=== PATIENT | male | born 1995 | race Two or more races ===

== ENCOUNTER → 2021-04-29 11:54 | Emergency (ER) | payer MEDICAID, OTHER ==
[~2021-04-29] VITALS: Ht 182.9 cm; Wt 81.6 kg
[~2021-04-29 11:54] MED LIST: PROCHLORPERAZINE EDISYLATE 5 MG/ML 2ML VIAL IV ONE; SODIUM CHLORIDE 0.9% 1,000 ML IV ONE
[2021-04-29 12:23] VITALS: BP 148/75
== END | disposition left against medical advice (07) ==
LOC: ER 11:54
DX: F41.9 Anxiety disorder, unspecified (principal)
CPT/HCPCS: 96361; 96374; 99283; J0780; J7030

== ENCOUNTER 2021-09-17 17:39 | Emergency (ER) | payer MEDICAID | END 2021-09-17 18:42 | disposition left against medical advice (07) | LOC: ER 17:39 | DX: M79.671 Pain in right foot (principal); Z53.21 Procedure and treatment not carried out due to patient leaving prior to being seen by health care provider ==

== ENCOUNTER 2021-12-10 19:00 | Inpatient (IN) | payer MEDICAID ==
[~2021-12-10] VITALS: Ht 182.9 cm; Wt 86.3 kg
[2021-12-10 20:01] LABS: Basophils # (auto) 0 10 ^3/uL (0-0.2); Basophils % (auto) 0.3 % (0.0-2.0); Eosinophils # (auto) 0 10 ^3/uL (0-0.8); Eosinophils % (auto) 0.4 % (0.0-7.0); Hematocrit 48.4 % (41.0-53.0); Hemoglobin 16.4 g/dL (13.5-17.5); Lymphocytes # (auto) 1.7 10 ^3/uL (0.4-5.4); Lymphocytes % (auto) 22.4 % (10.0-50.0); Mean Corpuscular Hemoglobin 30.3 pg (28.0-32.0); Mean Corpuscular Hgb Conc. 33.8 g/dL (32.0-36.0); Mean Corpuscular Volume 89.8 fL (80.0-100.0); Monocytes # (auto) 0.5 10 ^3/uL (0-1.3); Neutrophils # (auto) 5.4 10 ^3/uL (1.6-8.6); Neutrophils % (auto) 69.9 % (37.0-80.0); Nucleated Red Blood Cells % 0.1 %; Red Blood Cells 5.39 10^6/uL (4.5-5.90); Red Cell Distribution Width 12.9 % (11.8-14.3); White Blood Cell 7.8 10^3/uL (4.4-10.8)
[2021-12-10 20:15] LABS: Albumin 4.1 g/dL (3.4-5.0); Calcium 9.1 mg/dL (8.5-10.1); Potassium 3.6 mmol/L (3.5-5.1); Salicylate < 1.7 mg/dL (2.8-20.0)
[2021-12-10 20:16] LABS: Amphetamine Screen, Urine NEGATIVE (NEGATIVE); Barbiturate Scree,Urine NEGATIVE (NEGATIVE); Benzodiazephine Screen, Urine NEGATIVE (NEGATIVE); Cannabinoid Screen, Urine NEGATIVE (NEGATIVE); Cocaine Screen, Urine NEGATIVE (NEGATIVE); Opiate Scree,Urine NEGATIVE (NEGATIVE); Phencyclidine Screen, Urine NEGATIVE (NEGATIVE)
[2021-12-10 20:18] LABS: Acetaminophen < 2.0 ug/mL (10-30)
[2021-12-10 20:23] LABS: BUN/Creatinine Ratio 8.2; Bilirubin, Total 0.4 mg/dL (0.2-1.0)
[2021-12-10] MEDS ORDERED: NALOXONE HCL 1MG/ML 2ML SYRINGE IV ONE (21:15)
[2021-12-10] MEDS ORDERED: SODIUM CHLORIDE 0.9% 1,000 ML IV SCH (22:00)
[2021-12-10] MEDS ORDERED: FOLIC ACID 1 MG, MULTIPLE VITAMIN 10 ML, MAGNESIUM SULF SDV 50% 8 MEQ, THIAMINE INJ 100... INJ SCH ×5 (22:00)
[2021-12-10] MEDS ORDERED: ONDANSETRON HCL 4 MG/2 ML VIAL IV PRN (22:00)
[2021-12-10] MEDS ORDERED: LORazepam 2MG/ML-1ML VIAL IV PRN (22:30)
[2021-12-10] MEDS ORDERED: MULTIPLE VITAMIN TAB PO ONE (23:15)
[2021-12-10] MEDS ORDERED: FOLIC ACID 1 MG TAB PO ONE (23:15)
[2021-12-10] MEDS ORDERED: THIAMINE HCL 100 MG TAB PO ONE (23:15)
[2021-12-11 02:00] VITALS: BP 113/60
[2021-12-11] MEDS ORDERED: MULTIPLE VITAMIN TAB PO SCH (10:00)
[2021-12-11] MEDS ORDERED: FOLIC ACID 1 MG TAB PO SCH (10:00)
[2021-12-11] MEDS ORDERED: THIAMINE HCL 100 MG TAB PO SCH (10:00)
== END 2021-12-11 03:13 | disposition left against medical advice (07) | DRG 280 ==
LOC: EDBD 19:00 → ER 19:06 → OVERFLOW 22:16 → TELE 22:37
PROVIDERS: ADMIT Nurse Practitioner Family; ATTEND Nurse Practitioner Family
DX: K70.9 Alcoholic liver disease, unspecified (principal); F10.129 Alcohol abuse with intoxication, unspecified; F32.A Depression, unspecified; F41.9 Anxiety disorder, unspecified; Y90.6 Blood alcohol level of 120-199 mg/100 ml; Z53.29 Procedure and treatment not carried out because of patient's decision for other reasons; R74.8 Abnormal levels of other serum enzymes; F19.10 Other psychoactive substance abuse, uncomplicated; Z83.3 Family history of diabetes mellitus; Z20.822 Contact with and (suspected) exposure to COVID-19
CPT/HCPCS: 36415; 70450; 80053; 80307; 80320; 80329; 85025; 96361; 96374; 96375; 99291; G0378; J2405

== ENCOUNTER 2022-08-26 09:33 | Inpatient (IN) | payer MEDICAID ==
[~2022-08-26] VITALS: Ht 182.9 cm; Wt 87.8 kg
[2022-08-26 10:21] LABS: Basophils # (auto) 0 10 ^3/uL (0-0.2); Basophils % (auto) 0.6 % (0.0-2.0); Eosinophils # (auto) 0.1 10 ^3/uL (0-0.8); Eosinophils % (auto) 1.3 % (0.0-7.0); Hematocrit 50.8 % (41.0-53.0); Hemoglobin 17.6 g/dL (13.5-17.5); Lymphocytes # (auto) 2.1 10 ^3/uL (0.4-5.4); Lymphocytes % (auto) 26.8 % (10.0-50.0); Mean Corpuscular Hgb Conc. 34.6 g/dL (32.0-36.0); Mean Corpuscular Volume 89.8 fL (80.0-100.0); Monocytes # (auto) 0.6 10 ^3/uL (0-1.3); Monocytes % (auto) 8.4 % (0.0-12.0); Neutrophils # (auto) 4.8 10 ^3/uL (1.6-8.6); Neutrophils % (auto) 62.9 % (37.0-80.0); Nucleated Red Blood Cells % 0.2 %; Red Blood Cells 5.66 10^6/uL (4.5-5.90); Red Cell Distribution Width 12.8 % (11.8-14.3); White Blood Cell 7.6 10^3/uL (4.4-10.8)
[2022-08-26 10:35] LABS: Albumin 4.5 g/dL (3.4-5.0); Calcium 9.4 mg/dL (8.5-10.1); Magnesium 2.4 mg/dL (1.6-2.6); Potassium 4.2 mmol/L (3.5-5.1)
[2022-08-26 10:39] LABS: BUN/Creatinine Ratio 8.5 (10.0-20.0); Bilirubin, Total 0.8 mg/dL (0.2-1.0); Total Protein 8.2 g/dL (6.4-8.2)
[2022-08-26 10:48] LABS: INR 1.12 (0.9-1.15)
[2022-08-26] MEDS ORDERED: LORazepam 2MG/ML-1ML VIAL IV ONE (11:00)
[2022-08-26] MEDS ORDERED: ASPirin 325 MG TAB PO ONE (11:00)
[2022-08-26] MEDS ORDERED: ASPirin 325 MG TAB PO SCH (12:00)
[2022-08-26 12:11] LABS: Urine Bacteria NONE SEEN /hpf (None Seen); Urine Blood Negative /uL (Negative); Urine Mucus FEW (None Seen); Urine Specific Gravity 1.022 (1.001-1.035); Urine WBC <1 /hpf (0 - 3)
[2022-08-26 12:13] LABS: Alcohol, Urine < 3.0 mg/dL (0-10); Amphetamine Screen, Urine NEGATIVE (NEGATIVE); Barbiturate Scree,Urine NEGATIVE (NEGATIVE); Benzodiazephine Screen, Urine NEGATIVE (NEGATIVE); Cannabinoid Screen, Urine NEGATIVE (NEGATIVE); Cocaine Screen, Urine NEGATIVE (NEGATIVE); Opiate Scree,Urine NEGATIVE (NEGATIVE); Phencyclidine Screen, Urine NEGATIVE (NEGATIVE)
[2022-08-26] MEDS ORDERED: hydrALAZINE HCL 20 MG/ML VL IV PRN (12:15)
[2022-08-26] MEDS ORDERED: LORazepam 2MG/ML-1ML VIAL IV PRN (12:15)
[2022-08-26 12:27] LABS: Magnesium 2.4 mg/dL (1.6-2.6)
[2022-08-26 12:29] LABS: Phosphorus 3.1 mg/dL (2.5-4.90)
[2022-08-26 14:56] VITALS: BP 114/77
[2022-08-26] MEDS ORDERED: ATORVASTATIN 20 MG TAB PO SCH (22:00)
[2022-08-27] MEDS ORDERED: ASPirin 81 mg TAB PO SCH (10:00)
[2022-08-29 04:06] LABS: RPR Non Reactive (Non Reactive)
== END 2022-08-26 15:20 | disposition left against medical advice (07) | DRG 47 ==
LOC: ER 09:33 → TELE 12:03
PROVIDERS: ADMIT Nurse Practitioner Family; ATTEND Nurse Practitioner Family
DX: G45.9 Transient cerebral ischemic attack, unspecified (principal); F32.A Depression, unspecified; F41.9 Anxiety disorder, unspecified; R29.810 Facial weakness; Z53.29 Procedure and treatment not carried out because of patient's decision for other reasons; Z83.3 Family history of diabetes mellitus; Z91.51 Personal history of suicidal behavior
CPT/HCPCS: 36415; 70450; 71045; 80053; 80307; 81001; 82962; 83735; 83880; 84100; 84439; 84443; 84484; 85025; 85610; 85730; 86592; 93005; 93886; 96374; G0378